=== PATIENT | male | born 1960 | race Caucasian/White ===

== ENCOUNTER 2019-08-09 15:44 | Emergency (ER) | payer OTHER ==
[2019-08-09 16:03] VITALS: BP 131/69
[2019-08-09] MEDS ORDERED: TETANUS/DIPHTHERIA/PERTUSSIS 0.5 ML SYRINGE IM ONE (16:49)
--- NOTE | 2019-08-09 16:55 | ED Physician Documentation ---
History of Present Illness - Stated complaint Stated Complaint: RT PINKY FINGER LACERATION - Chief complaint Chief Complaint: Wound - History obtained from History obtained from: Patient - History of Present Illness Timing: How many hours ago (several hours) Pain level max: 3 Pain level now: 3 - Additonal information Additional information: 59-year-old male, works for [employer] for [employer] when he tripped and fell, causing a laceration to the right fifth digit, fourth digit and third digit. He states that the right fifth digit blood for several hours. Nothing is bleeding now. Came in for evaluation. Unknown last tetanus. Patient is right-handed. Worse with movement and better with rest Review of Systems Constitutional: denies: Fever, Chills GI: denies: Nausea, Vomiting, Diarrhea Skin: denies: Rash Musculoskeletal: denies: Neck pain, Back pain Neurologic: denies: Headache PD PAST MEDICAL HISTORY - Past Medical History Past Medical History: No Cardiovascular: None Respiratory: None Neuro: None Endocrine/Autoimmune: None GI: None : None HEENT: None Psych: None Musculoskeletal: None Derm: None - Past Surgical History Past Surgical History: Yes Ortho: Shoulder arthroplasty - Present Medications Home Medications: Ambulatory Orders Medication Instructions Recorded Confirmed Cephalexin [Keflex] 500 mg PO Q6H #28 capsule 08/09/19 - Allergies Allergies/Adverse Reactions: Allergies Allergy/AdvReac Type Severity Reaction Status Date / Time No Known Drug Allergies Allergy Verified 08/09/19 15:57 - Social History Does the pt smoke?: No Smoking Status: Never smoker Does the pt drink ETOH?: Yes Does the pt have substance abuse?: No - Immunizations Immunizations are current?: No Immunizations: TDAP >10years/unknown - POLST Patient has POLST: No PD ED PE NORMAL - Vitals Vital signs reviewed: Yes - General General: Alert and oriented X 3, No acute distress, Well developed/nourished - HEENT HEENT: Moist mucous membranes - Neck Neck: Supple, no meningeal sign - Derm Derm: Warm and dry - Extremities Extremities: Other (Right hand - Laceration over PIP joint of the right fifth digit. 2 cm, curved, flap. Abrasions to the right fourth digit. Abrasion to the dorsum of the third digit over the DIP joint. All are on the dorsum of the hand. All are neurovascularly intact. No evidence of tendon injury. Tested against resistance.) - Neuro Neuro: Alert and oriented X 3 - Psych Psych: Normal mood, Normal affect Results - Vitals Vitals: Vital Signs - 24 hr 08/09/19 15:57 Temperature 36.4 C L Heart Rate 58 L Respiratory 18 Rate Blood Pressure 131/69 H O2 Saturation 99 Oxygen O2 Source Room air - Rads (name of study) R hand xray Radiology: Prelim report reviewed, EMP read contemporaneously, See rad report (No acute bony abnormality) Procedures - Laceration (location) Right fifth digit Length in cm: 2 Wound type: Curved, Flap, Contaminated (Debris removed) Neurovascular status: Sensory intact, Motor intact, Vascular intact Tendon involvement: Tendon intact Anesthesia: Lidocaine 2% (Digital block) Wound Preparation: Irrigated copiously NS, Wound explored, To the base Skin layer closure: Dermabond Other: Patient tolerated well, No complications, Neurovascular intact, Dressing applied, Tetanus UTD Complexity: Simple PD MEDICAL DECISION MAKING - ED course Complexity details: reviewed results, re-evaluated patient, considered differential, d/w patient ED course: Patient with a laceration of the right fifth digit. No acute findings on x-ray. Discussed sutures versus Dermabond. He elects Dermabond with a splint. Given the thin flap that was created I do not know that sutures would hold well anyway. After careful cleaning of the wound, Dermabond was used to secure the e dges together. Will place on Keflex for home. Tdap given. Warnings of infection and instructions on wound care given at bedside. Also counseled on how to minimize scarring. Patient counseled regarding signs and symptoms for which I believe and urgent re-evaluation would be necessary. Patient with good understanding of and agreement to plan and is comfortable going home at this time This document was made in part using voice recognition software. While efforts are made to proofread this document, sound alike and grammatical errors may occur. Departure - Departure Disposition: 01 Home, Self Care Clinical Impression: Hand laceration Qualifiers: Encounter type: initial encounter Foreign body presence: unspecified Laterality: right Qualified Code(s): S61.411A - Laceration without foreign body of right hand, initial encounter Condition: Good Instructions: ED Laceration Hand Follow-Up: Castillo Zhou MD [Primary Care Provider] - Within 1 week (for wound check) Prescriptions: Cephalexin [Keflex] 500 mg PO Q6H #28 capsule Comments: Return if you worsen. Keep the wound clean. Take all antibiotics until gone. Return for redness, swelling or drainage from the wound. You can remove the splint in 3-4 days. Discharge Date/Time: 08/09/19 18:07
[2019-08-09] MEDS ORDERED: LIDOCAINE 2% 10 ML MDV SUBQ STA (17:03)
--- NOTE | 2019-08-09 17:22 | XRAY Report ---
Reason: fall, R hand pain Procedure Date: 08/09/2019 Accession Number: [id number] / [id number] Procedure: XR - Hand 3 View RT CPT Code: FULL RESULT: EXAM: RIGHT HAND RADIOGRAPHY EXAM DATE: 08/09/2019 04:59 PM. CLINICAL HISTORY: Fall, R hand pain. COMPARISON: None. TECHNIQUE: 3 views. FINDINGS: Bones: Normal. No fractures or bone lesions. Joints: Joint space and alignment appear satisfactory. Soft Tissues: Normal. No soft tissue swelling. IMPRESSION: Negative RADIA
[2019-08-09] MEDS ORDERED: BACITRACIN ZINC OINT 14 GM TOP ONE (17:57)
== END 2019-08-09 18:07 | disposition home or self-care (01) ==
LOC: ED 15:44
DX: S61.216A Laceration without foreign body of right little finger without damage to nail, initial encounter (principal); S60.414A Abrasion of right ring finger, initial encounter; S60.412A Abrasion of right middle finger, initial encounter; W01.0XXA Fall on same level from slipping, tripping and stumbling without subsequent striking against object, initial encounter; Y93.H3 Activity, building and construction; Y99.0 Civilian activity done for income or pay; Z23 Encounter for immunization
CPT/HCPCS: 1040M; 12001; 73130; 90471; 90715; 99283; A9270

== ENCOUNTER 2021-06-12 06:31 | Day surgery (SDC) | payer OTHER ==
[2021-06-12] MEDS ORDERED: LACTATED RINGERS 1,000 ML IV ONE ×2 (06:40→07:56)
[2021-06-12] MEDS ORDERED: fentaNYL 250 MCG/5 ML VIAL ONE (07:22)
[2021-06-12] MEDS ORDERED: MIDAZOLAM 2 MG/2 ML VIAL ONE ×2 (07:22)
[2021-06-12 08:12] VITALS: BP 123/69
== END 2021-06-12 06:32 | disposition home or self-care (01) ==
LOC: SDS 06:31
PROVIDERS: ATTEND Surgery
DX: Z12.11 Encounter for screening for malignant neoplasm of colon (principal); K64.8 Other hemorrhoids; K64.4 Residual hemorrhoidal skin tags; Z86.010 Personal history of colon polyps
CPT/HCPCS: 45378; J3010; J7120

== ENCOUNTER 2023-08-06 08:00 | Outpatient (CLI) | payer MEDICARE, OTHER ==
--- NOTE | 2023-08-06 15:15 | XRAY Report ---
PROCEDURE: Foot 3 View LT INDICATIONS: LEFT FOOT PAIN TECHNIQUE: 3 views of the foot were acquired. COMPARISON: None. FINDINGS: Bones: No fractures or dislocations. No suspicious bony lesions. Calcaneal bone spurs. Soft tissues: No suspicious soft tissue calcifications or masses. IMPRESSION: No fracture. No acute osseous lesion. If symptoms and/or clinical concern for pathology persists, fur ther assessment with repeat plain film radiographs (7-10 days) or advanced imaging (CT, MR, bone scan ) should be considered. Calcaneal bone spurs. Reviewed by: Lovely Bowers MD, PhD on 08/06/2023 3:14 PM PDT Approved by: Lovely Bowers MD, PhD on 08/06/2023 3:14 PM PDT Station ID: [id number]
== END 2023-08-06 23:59 | disposition home or self-care (01) ==
LOC: DI.S 08:00
PROVIDERS: ATTEND Physician Assistant
DX: M77.32 Calcaneal spur, left foot (principal)

== ENCOUNTER 2023-08-30 08:57 | Outpatient (CLI) | payer MEDICARE ==
--- NOTE | 2023-08-30 16:54 | Ultrasound Report ---
PROCEDURE: Axilla INDICATIONS: MASS OF RIGHT AXILLA TECHNIQUE: Real-time focused scanning was performed of the lateral back near the axilla, with image documentatio n. Color Doppler ultrasound was also utilized. COMPARISON: None. FINDINGS: Scans were formed within the area of clinical concern within the right lateral back, near the axilla. An ovoid, well-defined focus is seen at this site, measuring 5.1 x 5 x 1.8 cm. This is sl ightly hyperechoic to the surrounding normal subcutaneous fat. No significant internal vascularity ca n be seen. IMPRESSION: Likely lipoma seen at the site of clinical concern. Reviewed by: Denilson Berkowitz MD on 08/30/2023 3:52 PM AKST Approved by: Denilson Berkowitz MD on 08/30/2023 3:52 PM [place] Station ID: [id number]
== END 2023-08-30 08:58 | disposition home or self-care (01) ==
LOC: DI 08:57
PROVIDERS: ATTEND Nurse Practitioner Family
DX: R22.2 Localized swelling, mass and lump, trunk (principal)

== ENCOUNTER 2023-09-01 08:00 | Outpatient (CLI) | payer MEDICARE ==
--- NOTE | 2023-09-01 15:07 | XRAY Report ---
PROCEDURE: Foot 3 View LT INDICATIONS: LEFT FOOT PAIN TECHNIQUE: 3 views of the foot were acquired. COMPARISON: None. FINDINGS: Bones: No fractures or dislocations. No suspicious bony lesions. Mild first MTP joint osteoarthriti s. Calcaneal bone spurs. Soft tissues: No suspicious soft tissue calcifications or masses. IMPRESSION: Mild osteoarthritis. No fracture. No acute osseous lesion. If symptoms and/or clinical concern for pathology persists, fur ther assessment with repeat plain film radiographs (7-10 days) or advanced imaging (CT, MR, bone scan ) should be considered. Reviewed by: Lovely Bowers MD, PhD on 09/01/2023 3:06 PM PST Approved by: Lovely Bowers MD, PhD on 09/01/2023 3:06 PM PST Station ID: [id number]
== END 2023-09-01 23:59 | disposition home or self-care (01) ==
LOC: DI.WOS 08:00
PROVIDERS: ATTEND Orthopaedic Surgery
DX: S92.345A Nondisplaced fracture of fourth metatarsal bone, left foot, initial encounter for closed fracture (principal); M19.072 Primary osteoarthritis, left ankle and foot